=== PATIENT | male | born 1950 | race Caucasian/White ===

== ENCOUNTER → 2021-11-23 | Outpatient (CLI) | payer MEDICARE ==
[~2021-11-23] MED LIST: CRESTOR10 MG PO; FLOMAX 0.4 MG0.4 MG PO; HYDROXYZINE HCL10 MG PO; LISINOPRIL10 MG PO; OMEPRAZOLE20 MG PO
== END ==
LOC: HEART 5 14:30
DX: R00.1 Bradycardia, unspecified (principal); R94.31 Abnormal electrocardiogram [ECG] [EKG]